=== PATIENT | female | born 1985 | race Hispanic/Latino ===

== ENCOUNTER 2017-09-14 19:38 | Emergency (ER) | payer SELFPAY ==
[2017-09-14] MEDS ORDERED: FENTANYL CITR 100 MCG/2 ML ONE (20:34)
[2017-09-14] MEDS ORDERED: NA CHLORIDE 0.9% 1,000 ML ONE (20:35)
[2017-09-14 20:57] LABS: Absolute Lymphocytes (CBC) 2.7 K/uL (0.7-4.9); Absolute Neutrophil 6.6 K/uL (1.8-8.0); Basophils % 0.5 % (0-1.3); Eosinophils % 1.9 % (0-4.4); Hematocrit 42.6 % (36.0-45.0); Lymphocytes % 25.4 % (15.3-44.8); MCH 30.3 pg (27.0-35.0); MCV 88.2 fL (80-100); MPV 7.3 fL (7.6-11.3); Monocytes % 9.1 % (3.3-12.3); RBC Red Blood Cell Count 4.83 M/uL (3.86-4.86)
[2017-09-14 21:04] LABS: Potassium 3.5 mEq/L (3.6-5.0)
[2017-09-14 21:05] LABS: Protime INR 1.03
[2017-09-14 21:10] LABS: Bilirubin Direct 0.1 mg/dL (0-0.2); Bilirubin Total 0.6 mg/dL (0.3-1.2); Protein, Total 7.2 g/dL (6.0-8.3)
[2017-09-14 21:14] LABS: Magnesium 1.7 mg/dL (1.8-2.5)
--- NOTE | 2017-09-14 21:25 | RAD REPORT ---
EXAM DESCRIPTION: Apple Venous Uni Ltd09/14/2017 9:17 pm CLINICAL HISTORY: left leg pain COMPARISON: None. FINDINGS: Left common femoral, superficial femoral, popliteal and posterior tibial veins are compre ssible and demonstrate augmentation. Doppler demonstrates good flow. IMPRESSION: No evidence of deep venous thrombosis involving the left lower extremity.
--- NOTE | 2017-09-14 21:43 | RAD REPORT ---
EXAM DESCRIPTION: Tessa Thakkar Left09/14/2017 9:36 pm CLINICAL HISTORY: Left leg pain status post injury FINDINGS: A mildly displaced oblique fracture involves the distal fibular diametaphysis. Avulsion fracture of the medial malleolus is seen. Small avulsion fracture of the posterior malleolus is suspected. No dislocation is seen
[2017-09-14] MEDS ORDERED: POTASSIUM 25 MEQ EFFERV TAB ONE (22:13)
[2017-09-14] MEDS ORDERED: MAGNESIUM OXIDE 400 MG TAB ONE (22:13)
[2017-09-14] MEDS ORDERED: KETOROLAC 30 MG/ML INJ ONE (22:36)
--- NOTE | 2017-09-14 22:42 | ER ---
Nurse's Notes [facility] Name: Kady Abernathy Age: 32 yrs Sex: Female : 1985 Arrival Date: 09/14/2017 Time: 19:40 Bed 16 Private MD: Diagnosis: Pain in left ankle and joints of left foot-s/p fracture Presentation: 09/14 20:03 Presenting complaint: Patient states: About an hour ago I had a near syncope, I got a la1 really intense pain right before I passed out and I feel like the pain was just too much. Pt alert, oriented x4, respirations even and unlabored. Previous injury to LLE with cast and dressing applied. Transition of care: patient was not received from another setting of care. Onset of symptoms was September 14, 2017. Initial Sepsis Screen: Does the patient meet any 2 criteria? No. Patient's initial sepsis screen is negative. Does the patient have a suspected source of infection? No. Patient's initial sepsis screen is negative. Care prior to arrival: None. 20:03 Method Of Arrival: Wheelchair la1 20:03 Acuity: STEVEN 3 la1 Historical: - Allergies: 20:04 No Known Allergies; la1 - PMHx: 20:04 None; la1 - Immunization history:: Adult Immunizations up to date. - Social history:: Smoking status: Patient/guardian denies using tobacco. Screenin:17 Abuse screen: Denies threats or abuse. Nutritional screening: No deficits noted. tl2 Tuberculosis screening: No symptoms or risk factors identified. Fall Risk Gait- Impaired (20 pts.). Assessment: 20:17 General: Appears in no apparent distress. uncomfortable, Behavior is cooperative, tl2 appropriate for age, drowsy. General: Pain in left leg has gotten worse,supposed to have surgery on Saturday. Pain was so bad today that it made pt have a near syncopal episode. Pt reports feeling more drowsy than normal. Pain: Complains of pain in left leg Pain does not radiate. Pain currently is 10 out of 10 on a pain scale. Neuro: Level of Consciousness is awake, alert, obeys commands, Oriented to person, place, time, situation. Cardiovascular: Denies chest pain. Respiratory: Airway is patent Respiratory effort is even, unlabored, Respiratory pattern is regular, symmetrical. GI: No signs and/or symptoms were reported involving the gastrointestinal system. : No signs and/or symptoms were reported regarding the genitourinary system. Derm: Skin is pink, warm \T\ dry. 21:17 Reassessment: Patient appears in no apparent distress at this time. No changes from tl2 previously documented assessment. Patient and/or family updated on plan of care and expected duration. Pain level reassessed. Patient is alert, oriented x 3, equal unlabored respirations, skin warm/dry/pink. 22:00 Reassessment: Patient appears in no apparent distress at this time. Patient and/or tl2 family updated on plan of care and expected duration. Pain level reassessed. Patient is alert, oriented x 3, equal unlabored respirations, skin warm/dry/pink. 23:08 Reassessment: Patient appears in no apparent distress at this time. Patient and/or tl2 family updated on plan of care and expected duration. Pain level reassessed. Patient is alert, oriented x 3, equal unlabored respirations, skin warm/dry/pink. Pt verbalized understanding of discharge instructions, need for follow up and splint care. Vital Signs: 20:04 BP 96 / 80; Pulse 80; Resp 16; Temp 98.6; Pulse Ox 100% on R/A; Weight 89.81 kg; Height la1 5 ft. 3 in. (160.02 cm); 20:17 BP 110 / 77; Pulse 88; Resp 16; Pulse Ox 100% on R/A; tl2 21:17 BP 102 / 73; Pulse 71; Resp 18; Pulse Ox 100% on R/A; tl2 21:54 BP 113 / 66; Pulse 72; Resp 18; Pulse Ox 99% on R/A; tl2 22:00 BP 104 / 64; Pulse 83; Resp 18; Pulse Ox 100% on R/A; Pain 7/10; tl2 22:22 BP 108 / 68; Pulse 78; Resp 18; Pulse Ox 98% on R/A; tl2 20:04 Body Mass Index 35.07 (89.81 kg, 160.02 cm) la1 ED Course: 19:40 Patient arrived in ED. es 20:04 Triage completed. la1 20:05 Arm band placed on right wrist. la1 20:12 Hugo Keen PA is PHCP. cp 20:12 Ya Perez MD is Attending Physician. cp 20:17 Ashleigh Olivarez, NENA is Primary Nurse. tl2 20:17 Patient has correct armband on for positive identification. Bed in low position. Call tl2 light in reach. Side rails up X2. Adult w/ patient. 20:35 Inserted saline lock: 20 gauge in left antecubital area, using aseptic technique. Blood tl2 collected. 20:49 EKG done, by ED staff, reviewed by Hugo MONTOYA. cc 20:53 Ultrasound completed. Patient tolerated well. ap2 21:18 US Extremity Venous Uni Ltd In Process Unspecified. EDMS 21:33 XRAY Tib Fib LEFT In Process Unspecified. EDMS 21:33 X-ray completed. Portable x-ray completed in exam room. Patient tolerated procedure ag1 well. 22:00 No provider procedures requiring assistance completed. tl2 22:30 Orthoglass splint: Posterior short lleg splint applied on left leg. stirrup splint tl2 applied on left leg. 22:39 Lucian Martínez MD is Referral Physician. cp 23:11 IV discontinued, intact, bleeding controlled, No redness/swelling at site. Pressure tl2 dressing applied. Administered Medications: 20:45 Drug: fentaNYL (PF) 25 mcg Route: IVP; Site: left antecubital; tl2 21:23 Follow up: Response: No adverse reaction; Pain is unchanged, physician notified tl2 20:45 Drug: NS 0.9% 1000 ml Route: IV; Rate: 1 bolus; Site: left antecubital; tl2 23:12 Follow up: IV Status: Completed infusion; IV Intake: 1000ml tl2 21:39 Drug: fentaNYL (PF) 25 mcg Route: IVP; Site: left antecubital; tl2 22:00 Follow up: Response: No adverse reaction; Pain is unchanged, physician notified tl2 22:31 Drug: Potassium Effervescent Tablet 25 mEq Route: PO; tl2 23:12 Follow up: Response: No adverse reaction tl2 22:31 Drug: Magnesium Oxide 400 mg Route: PO; tl2 23:12 Follow up: Response: No adverse reaction tl2 22:43 Drug: TORadol 30 mg Route: IVP; Site: left antecubital; tl2 23:13 Follow up: Response: No adverse reaction; Medication administered at discharge. tl2 Intake: 23:12 IV: 1000ml; Total: 1000ml. tl2 Outcome: 22:41 Discharge ordered by . cp 23:11 Discharged to home via wheelchair, with family. tl2 23:11 Condition: stable 23:11 Discharge instructions given to patient, family, Instructed on discharge instructions, follow up and referral plans. Demonstrated understanding of instructions, follow-up care, splint care. 23:13 Patient left the ED. tl2 Signatures: Dispatcher [employer] EDMelva Willis [place] cc Attema, Lee, RN RN la1 Joselyn Carrington ag1 Hugo Keen PA PA cp Knox, Taylor RN RN tl2 Corin Orozco ap2 Corrections: (The following items were deleted from the chart) 21:19 21:18 Ultrasound completed. Patient tolerated well. ap2 ap2 22:23 22:22 Pulse 78bpm; Resp 18bpm; Pulse Ox 98% RA; tl2 tl2 23:11 22:00 IV discontinued, intact, bleeding controlled, No redness/swelling at site. tl2 Pressure dressing applied, tl2
--- NOTE | 2017-09-14 22:42 | EDPHYS ---
Physician Documentation [facility] Name: Kady Abernathy Age: 32 yrs Sex: Female : 1985 Arrival Date: 09/14/2017 Time: 19:40 Bed 16 Private MD: ED Physician Ya Perez HPI: 09/14 20:48 This 32 yrs old Female presents to ER via Wheelchair with complaints of cp Medical Complaint. 20:48 The patient has experienced near-syncope, almost passed out. cp 20:48 Onset: The symptoms/episode began/occurred today. cp Historical: - Allergies: 20:04 No Known Allergies; la1 - PMHx: 20:04 None; la1 - Immunization history:: Adult Immunizations up to date. - Social history:: Smoking status: Patient/guardian denies using tobacco. ROS: 20:55 Constitutional: Negative for body aches, chills, fever, poor PO intake. cp 20:55 Eyes: Negative for injury, pain, redness, and discharge. cp 20:55 ENT: Negative for drainage from ear(s), ear pain, sore throat, difficulty swallowing, difficulty handling secretions. 20:55 Neck: Negative for pain with movement, pain at rest, stiffness. 20:55 Cardiovascular: Negative for chest pain, palpitations. 20:55 Respiratory: Negative for cough, shortness of breath, wheezing. 20:55 Abdomen/GI: Negative for abdominal pain, nausea, vomiting, and diarrhea, constipation, black/tarry stool, rectal bleeding. 20:55 Back: Negative for pain at rest, pain with movement, radiated pain. 20:55 : Negative for urinary symptoms. 20:55 Skin: Positive for ecchymosis, swelling, of the left ankle, Negative for cellulitis, rash. 20:55 Neuro: Positive for near syncope, Negative for altered mental status, headache, seizure activity, speech changes, syncope, weakness. 20:55 All other systems are negative. Exam: 20:40 ECG was reviewed by the Attending Physician. cp 21:00 Constitutional: The patient appears in no acute distress, alert, awake, non-toxic, well cp developed, well nourished, uncomfortable. 21:00 Head/Face: Normocephalic, atraumatic. Eyes: Pupils equal round and reactive to light, cp extra-ocular motions intact. Lids and lashes normal. Conjunctiva and sclera are non-icteric and not injected. Cornea within normal limits. Periorbital areas with no swelling, redness, or edema. ENT: Nares patent. No nasal discharge, no septal abnormalities noted. Tympanic membranes are normal and external auditory canals are clear. Oropharynx with no redness, swelling, or masses, exudates, or evidence of obstruction, uvula midline. Mucous membranes moist. Neck: Trachea midline, no thyromegaly or masses palpated, and no cervical lymphadenopathy. Supple, full range of motion without nuchal rigidity, or vertebral point tenderness. No Meningismus. Chest/axilla: Normal chest wall appearance and motion. Nontender with no deformity. No lesions are appreciated. 21:00 Cardiovascular: Rate: normal, Rhythm: regular, Pulses: Pulses are 2+ in left dorsalis pedis artery. Heart sounds: murmur, not appreciated, JVD: is not appreciated. 21:00 Respiratory: the patient does not display signs of respiratory distress, Respirations: normal, no use of accessory muscles, no retractions, no splinting, no tachypnea, labored breathing, is not present, Breath sounds: are clear throughout, no decreased breath sounds, no stridor, no wheezing. 21:00 Abdomen/GI: Inspection: abdomen appears normal, Bowel sounds: active, all quadrants, Palpation: abdomen is soft and non-tender, in all quadrants, rebound tenderness, is not appreciated, involuntary guarding, is not appreciated. 21:00 Back: pain, is absent, ROM is normal. Vital Signs: 20:04 BP 96 / 80; Pulse 80; Resp 16; Temp 98.6; Pulse Ox 100% on R/A; Weight 89.81 kg; Height la1 5 ft. 3 in. (160.02 cm); 20:17 BP 110 / 77; Pulse 88; Resp 16; Pulse Ox 100% on R/A; tl2 21:17 BP 102 / 73; Pulse 71; Resp 18; Pulse Ox 100% on R/A; tl2 21:54 BP 113 / 66; Pulse 72; Resp 18; Pulse Ox 99% on R/A; tl2 22:00 BP 104 / 64; Pulse 83; Resp 18; Pulse Ox 100% on R/A; Pain 7/10; tl2 22:22 BP 108 / 68; Pulse 78; Resp 18; Pulse Ox 98% on R/A; tl2 20:04 Body Mass Index 35.07 (89.81 kg, 160.02 cm) la1 MDM: 20:12 Patient medically screened. cp 22:40 Data reviewed: vital signs, nurses notes, lab test result(s), EKG, radiologic studies, cp plain films, ultrasound, and as a result, I will discharge patient. 22:40 Test interpretation: by ED physician or midlevel provider: ECG. Counseling: I had a cp detailed discussion with the patient and/or guardian regarding: the historical points, exam findings, and any diagnostic results supporting the discharge/admit diagnosis, lab results, radiology results, the need for outpatient follow up, a orthopedic surgeon, to return to the emergency department if symptoms worsen or persist or if there are any questions or concerns that arise at home. 09/14 20:23 Order name: Basic Metabolic Panel; Complete Time: 21:18 cp 09/14 21:18 Interpretation: Normal except: K 3.5; GLUC 127; GFR 87. 09/14 20:23 Order name: CBC with Diff; Complete Time: 21:18 cp 09/14 22:04 Interpretation: WBC 10.5; MPV 7.3; Reviewed. 09/14 20:23 Order name: LFT's; Complete Time: 21:18 cp 09/14 20:23 Order name: Magnesium; Complete Time: 21:18 cp 09/14 21:18 Interpretation: Abnormal: MG 1.7. cp 09/14 20:23 Order name: PT-INR; Complete Time: 21:18 cp 09/14 20:23 Order name: Ptt, Activated; Complete Time: 21:18 cp 09/14 20:23 Order name: US Extremity Venous Uni Ltd; Complete Time: 22:02 cp 09/14 22:02 Interpretation: Report reviewed. 09/14 20:23 Order name: XRAY Tib Fib LEFT; Complete Time: 22:02 cp 09/14 22:03 Interpretation: Report reviewed. 09/14 20:23 Order name: EKG; Complete Time: 20:24 cp 09/14 20:23 Order name: EKG - Nurse/Tech; Complete Time: 20:33 cp 09/14 20:23 Order name: Cardiac monitoring; Complete Time: 20:45 cp 09/14 20:23 Order name: IV Saline Lock; Complete Time: 20:33 cp 09/14 20:23 Order name: Labs collected and sent; Complete Time: 20:33 cp 09/14 20:23 Order name: O2 Per Protocol; Complete Time: 20:45 cp 09/14 20:23 Order name: O2 Sat Monitoring; Complete Time: 20:45 cp 09/14 22:19 Order name: Splint - Long Leg: Posterior w/ Stirrup; Complete Time: 22:20 cp EC:40 Rate is 73 beats/min. Rhythm is regular. NE interval is normal. QRS interval is normal. cp QT interval is normal. No ST changes noted. Interpreted by me. Reviewed by me. Administered Medications: 20:45 Drug: fentaNYL (PF) 25 mcg Route: IVP; Site: left antecubital; tl2 21:23 Follow up: Response: No adverse reaction; Pain is unchanged, physician notified tl2 20:45 Drug: NS 0.9% 1000 ml Route: IV; Rate: 1 bolus; Site: left antecubital; tl2 23:12 Follow up: IV Status: Completed infusion; IV Intake: 1000ml tl2 21:39 Drug: fentaNYL (PF) 25 mcg Route: IVP; Site: left antecubital; tl2 22:00 Follow up: Response: No adverse reaction; Pain is unchanged, physician notified tl2 22:31 Drug: Potassium Effervescent Tablet 25 mEq Route: PO; tl2 23:12 Follow up: Response: No adverse reaction tl2 22:31 Drug: Magnesium Oxide 400 mg Route: PO; tl2 23:12 Follow up: Response: No adverse reaction tl2 22:43 Drug: TORadol 30 mg Route: IVP; Site: left antecubital; tl2 23:13 Follow up: Response: No adverse reaction; Medication administered at discharge. tl2 Disposition: 09/15 01:21 Co-signature as Attending Physician, Ya Perez MD I agree with the assessment ma2 and plan of care. Disposition: 09/14/17 22:41 Discharged to Home. Impression: Pain in left ankle and joints of left foot - s/p fracture. - Condition is Stable. - Discharge Instructions: Ankle Fracture, Ankle Pain. - Medication Reconciliation Form, Thank You Letter, Antibiotic Education, Prescription Opioid Use form. - Follow up: Lucian Martínez MD; When: 09/17/2017; Reason: as scheduled for surgery. - Problem is an ongoing problem. - Symptoms have improved. Signatures: Dispatcher [employer] Christofer Vega RN RN la1 Hugo Keen PA PA cp Knox, Taylor, RN RN tl2 Ya Perez MD MD ma2 Corrections: (The following items were deleted from the chart) 09/14 22:04 21:18 Reviewed. cp cp
--- NOTE | 2017-09-15 06:13 | EKG ---
Test Date: 2017-09-14 Test Time: 20:35:39 [employer] Worker: SHELLIE MEASUREMENT RESULTS: Intervals: Rate: 73 NH: 130 QRSD: 80 QT: 390 QTc: 429 Ennice: P: 46 NH: 130 QRS: -13 T: 16 INTERPRETIVE STATEMENTS: Normal sinus rhythm Normal ECG Compared to ECG 09/12/2017 13:14:51 no significant change from previous ECG Electronically Signed On 09-15-17 06:12:30 CDT by Jt Pisano
== END 2017-09-14 23:13 | disposition home or self-care (01) ==
LOC: ER 19:38
PROC: 2W3MX1Z Immobilization of Left Lower Extremity using Splint (ICD-10-PCS; principal; 2017-09-14)
DX: S82.892A Other fracture of left lower leg, initial encounter for closed fracture (principal); R55 Syncope and collapse; X58.XXXA Exposure to other specified factors, initial encounter; Y93.9 Activity, unspecified; Y92.9 Unspecified place or not applicable
CPT/HCPCS: 36415; 80048; 80076; 83735; 85025; 85610; 85730; 93005; 93971; 96361; 96374; 96375; 99284; J3010; J7030

== ENCOUNTER 2017-09-17 12:00 | Day surgery (SDC) | payer SELFPAY ==
--- NOTE | 2017-09-12 13:37 | RAD REPORT ---
EXAM DESCRIPTION: RAD - Chest Pa And Lat (2 Views) - 09/12/2017 1:30 pm CLINICAL HISTORY: Chest pain. COMPARISON: None. FINDINGS: The lungs are clear. The heart is normal in size. No displaced fractures. IMPRESSION: No acute or concerning finding suspected.
[2017-09-12 13:59] LABS: Absolute Monocytes 0.6 K/uL (0.1-1.3); Basophils % 0.5 % (0-1.3); Eosinophils % 2.3 % (0-4.4); Hematocrit 42.9 % (36.0-45.0); Lymphocytes % 38.7 % (15.3-44.8); MCH 30.4 pg (27.0-35.0); MCV 88.6 fL (80-100); MPV 7.7 fL (7.6-11.3); Monocytes % 7.1 % (3.3-12.3); RBC Red Blood Cell Count 4.84 M/uL (3.86-4.86)
[2017-09-12 14:00] LABS: Urine Appearance CLEAR; Urine Bilirubin NEGATIVE (NEG); Urine Blood TRACE (NEG); Urine Color YELLOW; Urine Glucose NEGATIVE (NEG); Urine Protein NEGATIVE (NEG); Urine Specific Gravity 1.015 (1.005-1.030); Urine Urobilinogen 0.2 mg/dL (0.2-1.0); Urine pH 6.5 (5.0-7.0)
[2017-09-12 14:29] LABS: ALT/SGPT 16 IU/L (10-60); AST/SGOT 21 IU/L (10-42); Albumin 3.9 g/dL (3.2-5.5); Alkaline Phosphatase 68 IU/L (42-121); BUN Blood Urea Nitrogen 6 mg/dL (6-20); Bicarbonate 27 mEq/L (21-31); Bilirubin Total 0.5 mg/dL (0.3-1.2); Glucose Level 85 mg/dL (65-120); Potassium 4.1 mEq/L (3.6-5.0); Protein, Total 6.9 g/dL (6.0-8.3); Sodium Level 136 mEq/L (135-145)
[2017-09-12 14:42] LABS: Urine Microscopic Reflex ORDER UMIC
[2017-09-12 14:49] LABS: Urine Bacteria <20 /HPF (<20); Urine Culture Reflex Order REFLEXED; Urine RBC <5 /HPF (NONE SEEN)
--- NOTE | 2017-09-12 17:00 | EKG ---
Test Date: 2017-09-12 Test Time: 13:14:51 [employer] Associate: IVAN MEASUREMENT RESULTS: Intervals: Rate: 69 RI: 128 QRSD: 80 QT: 410 QTc: 439 [place]: P: 50 RI: 128 QRS: -24 T: 15 INTERPRETIVE STATEMENTS: Normal sinus rhythm Possible Left atrial enlargement Borderline ECG No previous ECG available for comparison Electronically Signed On 09-12-17 17:00:20 CDT by Jt Pisano
[2017-09-13 08:24] LABS: A1c Component 0.57 mg/dL; Hemoglobin A1c 5.4 % (4-6.0)
[2017-09-17] MEDS ORDERED: VANCOMYCIN/NS 1 gm 1 GM/250 ML BAG ONE (12:17)
[2017-09-17] MEDS ORDERED: Ringers Lactate 1,000 ML IV ONE ×2 (12:17→15:31)
[2017-09-17 12:19] LABS: Specific Gravity 1.015 (1.005-1.030)
[2017-09-17] MEDS ORDERED: FENTANYL CITR 100 MCG/2 ML ONE ×2 (12:32→14:20)
[2017-09-17] MEDS ORDERED: PROPOFOL 200 MG/20 ML VIAL IV ONE (12:32)
[2017-09-17] MEDS ORDERED: MIDAZOLAM HCL 2 MG/2 ML INJ ONE (12:32)
[2017-09-17] MEDS ORDERED: ONDANSETRON 4 MG/2 ML VIAL ONE (12:32)
[2017-09-17] MEDS ORDERED: LIDOCAINE 2% MPF 5 ML VIAL ONE (12:32)
[2017-09-17] MEDS ORDERED: DEXAMETHASONE 10 MG/ML VIAL ONE (12:32)
[2017-09-17] MEDS ORDERED: BUPIVACA 0.25%/EPI 0.0005% MDV 50 ML VIAL ONE (12:45)
[2017-09-17] MEDS ORDERED: BUPIVACAINE 0.25% PF 10 ML VIAL ONE (12:46)
[2017-09-17 13:00] LABS: Urine Appearance CLEAR; Urine Bilirubin NEGATIVE (NEG); Urine Blood TRACE (NEG); Urine Color YELLOW; Urine Glucose NEGATIVE (NEG); Urine Protein NEGATIVE (NEG); Urine Specific Gravity 1.015 (1.005-1.030); Urine Urobilinogen 0.2 mg/dL (0.2-1.0); Urine pH 7.5 (5.0-7.0)
[2017-09-17 13:02] LABS: Urine Microscopic Reflex ORDER UMIC
[2017-09-17 13:15] LABS: Urine Bacteria <20 /HPF (<20); Urine Culture Reflex Order REFLEXED; Urine RBC <5 /HPF (NONE SEEN)
[2017-09-17] MEDS ORDERED: KETOROLAC 30 MG/ML INJ ONE (13:25)
--- NOTE | 2017-09-17 15:12 | RAD REPORT ---
EXAM DESCRIPTION: RAD - Ankle Left 2 View - 09/17/2017 3:04 pm CLINICAL HISTORY: Left ankle fracture. COMPARISON: None. FINDINGS: Fluoroscopic imaging is submitted of the left ankle as part of ORIF procedure. Details of the procedure not available.
[2017-09-17] MEDS: MEPERIDINE HCL 25 MG/0.5 ML ONE ×2 (15:35→15:40)
--- NOTE | 2017-09-17 15:39 | P.BOP ---
Preoperative diagnosis: Left ankle bimalleolar fracture Postoperative diagnosis: Same Primary procedure: ORIF left ankle bimalleolar fracture Tangible Personal Property Appraiser: Lucian Martínez Estimated blood loss: 20 mL Specimen: none Findings: bimalleolar fracture Anesthesia: General Complications: None Implants: 6-hole1/3tubular plate,5cortical screws,1 CannulatedCancellousScrewMedMall Fluids & blood products: inj. 20 mL 0.25%Marcaine plain Transferred to: Recovery Room Condition: Good
[2017-09-17] MEDS ORDERED: MEPERIDINE HCL 25 MG/0.5 ML ONE (15:52)
[2017-09-17] MEDS ORDERED: HYDROCODONE/APAP 10/325 TAB ONE (17:04)
--- NOTE | 2017-09-19 05:35 | OP ---
Date of Procedure: 09/17/2017 Surgeon: Lucian Martínez MD Scissors Grinder: Lucian Martínez M.D. Preoperative Diagnosis: Left ankle bimalleolar fracture. Postoperative Diagnosis: Left ankle bimalleolar fracture. Primary Procedure: Open reduction and internal fixation, left ankle bimalleolar fracture. Indications: This 32-year-old female suffered an impact while sliding down a slide at the [employer] layground causing her foot to be twisted behind her. She had immediate pain and swelling and went to the emergency department where bimalleolar fracture was seen on x-ray and the patient was placed in a short-leg splint. The injury occurred on 09/06/2017, and she was taken to surgery 11 days later. She did have her splint opened at the office to make sure there were no fracture blisters. The patie nt is aware of risks and benefits having discussed them at length with all questions answered. She h as elected to proceed with bimalleolar ORIF. Technique: The patient was taken to the operating room. All pertinent facts were discussed and the decision to proceed with the operation was affirmative. The patient was given a general anesthetic. A bolster was placed under the left hip to allow access to the lateral ankle. The tourniquet was ap plied to the proximal thigh. The limb was prepped and draped in usual manner. Exsanguination was ca rried out with an Esmarch bandage. The tourniquet was raised to 250 mmHg. The incision was made ove r the distal 8 cm of the lateral malleolus. Incision was carried sharply down through skin and subcu taneous tissue to bone. The fracture site was identified and reduced with a claw clamp. The 6 hole 1/3 tubular plate was bent to fit and 2 screws were placed distal to the fracture line with 3 screws placed proximal to the fracture line with each screw drilled and measured with a depth gauge and veri fied as appropriate in length with the C-arm. Once the lateral malleolus was secured, attention was turned to the medial malleolus. A 3 cm longitudinal incision over the tip of the medial malleolus re vealed the fracture site, which was reduced and held with a towel clip clamp, then a guide pin was dr illed across the fracture site into the distal tibia to catch the posterior cortex. This made for a stable guidewire that would not move around while reaming and insertion of screw was performed. The fragment of the medial malleolus was quite small and too small to accept 2 screws for fixation, so th e reaming drill was used over the guide pin and then a 40 mm cancellous smooth shaft screw was rotate d in over the guidewire to compress the medial malleolar fragment against its fracture site. The fra gment was then quite stable to palpation without movement. Irrigation was used for both the medial a nd lateral incisions. Fascial layers were closed with 2-0 Vicryl. Subcutaneous layers were closed w ith 2-0 Vicryl. Skin jamari were used for skin closure. Then, the posterior splint and coaptation splint that were removed from the patient was reapplied after Xeroform gauze, 4 x 4 flats, and soft r oll were applied for bandages. Before closure of the bandage, the incisions had been injected with 2 0 mL of 0.25% Marcaine plain. The implants included the 6 hole 1/3 tubular plate, 5 cortical screws, and 1 cannulated cancellous screw for the medial malleolar fixation. Tourniquet time was 86 minutes with the tourniquet elevated to 250 mmHg. The patient was taken to the recovery room, having tolera bonnie the procedure well. She was prescribed [place] 10/325 one tablet p.o. q.4 hours p.r.n. pain and di scharged when released by Anesthesia for followup at my office in 7 to 10 days. The patient is to co ntinue nonweightbearing ambulation using crutches for an additional 4 weeks. AASHISH/ISABEL Voice ID: [id number] Report ID: [id number]
== END 2017-09-17 18:22 | disposition home or self-care (01) ==
LOC: OR 12:00
PROVIDERS: ATTEND Orthopaedic Surgery
PROC: 0QSK04Z Reposition Left Fibula with Internal Fixation Device, Open Approach (ICD-10-PCS; 2017-09-17)
PROC: 0QSH04Z Reposition Left Tibia with Internal Fixation Device, Open Approach (ICD-10-PCS; principal; 2017-09-17 13:00)
DX: S82.842A Displaced bimalleolar fracture of left lower leg, initial encounter for closed fracture (principal)
CPT/HCPCS: 36415; 71046; 80053; 81003; 81015; 81025; 83036; 85025; 87077; 87086; 87088; 87186; 93005; J1100; J2175; J2250; J2405; J3010; J3370

== ENCOUNTER 2017-09-24 16:24 | Emergency (ER) | payer SELFPAY ==
[2017-09-24] MEDS ORDERED: NA CHLORIDE 0.9% 1,000 ML ONE (17:48)
[2017-09-24] MEDS ORDERED: METHYLPREDNISOLONE 125 MG INJ ONE (17:48)
[2017-09-24] MEDS ORDERED: FAMOTIDINE 20 MG/2 ML VIAL IV ONE (17:49)
[2017-09-24] MEDS ORDERED: ONDANSETRON 4 MG/2 ML VIAL ONE (17:50)
[2017-09-24] MEDS ORDERED: DIPHENHYDRAMINE 50 MG/ML VIAL ONE (17:50)
[2017-09-24 17:52] LABS: Urine Blood 1+ (NEG); Urine Glucose NEGATIVE (NEG); Urine Protein NEGATIVE (NEG); Urine Specific Gravity <1.005 (1.005-1.030)
[2017-09-24 17:57] LABS: Urine Bacteria <20 /HPF (<20); Urine Culture Reflex Order NOT NEEDED
[2017-09-24 18:06] LABS: BUN Blood Urea Nitrogen 8 mg/dL (6-20); Bicarbonate 25 mEq/L (21-31); Glucose Level 108 mg/dL (65-120); Potassium 3.5 mEq/L (3.6-5.0); Sodium Level 130 mEq/L (135-145)
[2017-09-24 18:31] LABS: Absolute Lymphocytes (CBC) 0.3 K/uL (0.7-4.9); Absolute Monocytes 0.3 K/uL (0.1-1.3); Absolute Neutrophil 8.1 K/uL (1.8-8.0); Basophils % 0.2 % (0-1.3); Eosinophils % 3.3 % (0-4.4); Hematocrit 40.8 % (36.0-45.0); MCV 87.8 fL (80-100); MPV 7.9 fL (7.6-11.3); Monocytes % 3.4 % (3.3-12.3); RBC Red Blood Cell Count 4.65 M/uL (3.86-4.86)
[2017-09-24 18:34] LABS: Blood Morphology Comment NOT SEEN (NOT SEEN); Platelet Estimate ADEQ; Urine White Blood Cell Casts OK
--- NOTE | 2017-09-24 19:36 | RAD REPORT ---
EXAM DESCRIPTION: CTAbdomen Pelvis W Contrast - 09/24/2017 7:28 pm CLINICAL HISTORY: Abdominal pain. COMPARISON: None. TECHNIQUE: Biphasic CT imaging of the abdomen and pelvis was performed with 100 ml non-ionic IV cont rast. All CT scans are performed using dose optimization technique as appropriate and may include automated exposure control or mA/KV adjustment according to patient size. FINDINGS: Mild linear atelectasis is present in the posterior left lung base. The liver, spleen, pancreas, adrenal glands and right kidney are within normal limits. 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 No bowel obstruction, free air, intra-abdominal free fluid or abscess. Mild pelvic free fluid, likely physiologic. The appendix is normal. A few mildly prominent bilateral inguinal lymph nodes seen. Sm all fat containing umbilical hernia. No suspicious bony findings. 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 Mild bilateral inguinal lymphadenopathy, presumably reactive.
--- NOTE | 2017-09-24 19:57 | ER ---
Nurse's Notes [facility] Name: Kady Abernathy Age: 32 yrs Sex: Female : 1985 Arrival Date: 09/24/2017 Time: 16:26 Bed 28 Private MD: None, None Diagnosis: Allergy status to other antibiotic agents status Presentation: 09/24 16:55 Presenting complaint: Patient states: taking rifampin, Bactrim, and hydrocodone, i had ch ankel surgery and dx with a uti/sour stomach. I have been running a fever all day, t max 102.3, and now i am covered in red itchy splotches. I dont feel well still, I ache all over. Transition of care: patient was not received from another setting of care. Onset: The symptoms/episode began/occurred gradually. Anaphylaxis evaluation, no signs or symptoms of anaphylaxis were noted. Onset of symptoms was September 24, 2017. Initial Sepsis Screen: Does the patient meet any 2 criteria? No. Patient's initial sepsis screen is negative. Does the patient have a suspected source of infection? No. Patient's initial sepsis screen is negative. Care prior to arrival: None. 16:55 Method Of Arrival: Ambulatory 16:55 Acuity: STEVEN 3 ch Triage Assessment: 16:57 General: Appears in no apparent distress. uncomfortable, Behavior is cooperative, ch appropriate for age. Historical: - Allergies: 16:57 No Known Allergies; ch - Home Meds: 16:57 Rifampin Oral [Active]; Bactrim DS Oral [Active]; [place] Oral [Active]; Ibuprofen Oral ch [Active]; tylenol [Active]; - PMHx: 16:57 None; ch - PSHx: 16:57 L ankle; ch - Immunization history:: Adult Immunizations unknown. - Social history:: Smoking status: Patient/guardian denies using tobacco. Screenin:00 Abuse screen: Denies threats or abuse. Denies injuries from another. Nutritional kr2 screening: No deficits noted. Tuberculosis screening: No symptoms or risk factors identified. Fall Risk IV access (20 points). Gait- Impaired (20 pts.). Assessment: 17:00 General: Appears in no apparent distress. uncomfortable, well groomed, well developed, kr2 well nourished, Behavior is calm, cooperative, appropriate for age. Pain: Complains of pain in left leg Pain does not radiate. Pain currently is 5 out of 10 on a pain scale. Quality of pain is described as aching, Is continuous. Neuro: Level of Consciousness is awake, alert, obeys commands, Oriented to person, place, time, situation, Appropriate for age. Cardiovascular: Capillary refill < 3 seconds in bilateral fingers Patient's skin is warm and dry. Respiratory: Airway is patent Respiratory effort is even, unlabored, Respiratory pattern is regular, symmetrical, Breath sounds are clear bilaterally. GI: Abdomen is flat, non-distended. : Urine is clear. EENT: Oral mucosa is dry. Derm: Skin is intact, is healthy with good turgor, Skin is pink, warm \T\ dry. Rash noted that is itchy, red, raised, on face and arms. Musculoskeletal: Circulation, motion, and sensation intact. splint in place to left lower leg due to recent ankle surgery. Toes pink, sensation intact. 18:00 Reassessment: Patient appears in no apparent distress at this time. Patient and/or kr2 family updated on plan of care and expected duration. Pain level reassessed. Patient is alert, oriented x 3, equal unlabored respirations, skin warm/dry/pink. 19:00 Reassessment: Patient appears in no apparent distress at this time. Patient and/or kr2 family updated on plan of care and expected duration. Pain level reassessed. Patient is alert, oriented x 3, equal unlabored respirations, skin warm/dry/pink. Patient states feeling better. 20:15 Reassessment: Patient appears in no apparent distress at this time. Patient and/or kr2 family updated on plan of care and expected duration. Pain level reassessed. Patient is alert, oriented x 3, equal unlabored respirations, skin warm/dry/pink. States itching has started to return, provider notified. Orders for PO Benadryl received, see MAR Patient states feeling better. Vital Signs: 16:57 Weight 89.81 kg; Height 5 ft. 3 in. (160.02 cm); ch 17:00 BP 110 / 66; Pulse 102; Resp 18; Temp 99.2; Pulse Ox 100% on R/A; kr2 18:43 BP 110 / 64; Pulse 101; Resp 16; Pulse Ox 100% on R/A; kr2 20:24 BP 108 / 70; Pulse 99; Resp 15; Pulse Ox 100% on R/A; kr2 16:57 Body Mass Index 35.07 (89.81 kg, 160.02 cm) ED Course: 16:26 Patient arrived in ED. mr 16:26 None, None is Private Physician. mr 16:51 Marlen Albert FNP-C [facility]. kb 16:51 Ya Perez MD is Attending Physician. kb 16:56 Triage completed. 16:57 Arm band placed on left wrist. Patient placed in an exam room, on a stretcher. 17:00 Patient has correct armband on for positive identification. Bed in low position. Call kr2 light in reach. Side rails up X2. Adult w/ patient. Pulse ox on. NIBP on. Door closed. Lights dimmed. Warm blanket given. Head of bed elevated. 17:10 Rosemarie Staples, NENA is Primary Nurse. kr2 17:20 Inserted saline lock: 22 gauge in right antecubital area, using aseptic technique. kr2 Blood collected. 19:[address] via stretcher. vm2 19:28 CT Abd/Pelvis - W/Contrast In Process Unspecified. EDMS 20:23 No provider procedures requiring assistance completed. IV discontinued, intact, kr2 bleeding controlled, No redness/swelling at site. Pressure dressing applied. Administered Medications: 18:00 Drug: NS 0.9% 1000 ml Route: IV; Rate: 1000 ml; Site: right antecubital; kr2 19:30 Follow up: Response: No adverse reaction; IV Status: Completed infusion kr2 18:00 Drug: Zofran 4 mg Route: IVP; Site: right antecubital; kr2 20:22 Follow up: Response: No adverse reaction kr2 18:00 Drug: Pepcid 20 mg Route: IVP; Site: right antecubital; kr2 20:21 Follow up: Response: No adverse reaction kr2 18:00 Drug: Benadryl 12.5 mg Route: IVP; Site: right antecubital; kr2 20:21 Follow up: Response: No adverse reaction kr2 18:00 Drug: SOLU-Medrol 125 mg Route: IVP; Site: right antecubital; kr2 20:21 Follow up: Response: No adverse reaction kr2 20:21 Drug: Benadryl 50 mg Route: PO; kr2 20:22 Follow up: Response: Medication administered at discharge. kr2 Outcome: 19:56 Discharge ordered by . bailey 20:24 Discharged to home via wheelchair, with family. kr2 20:24 Condition: good 20:24 Discharge instructions given to patient, family, Instructed on discharge instructions, follow up and referral plans. Demonstrated understanding of instructions, follow-up care. 20:25 Patient left the ED. kr2 Addendum: 09/29/2017 09:15 Addendum: Culture Results: Positive urine culture. Phone call Attempt #1 attempted to s s call patient, no answer and no VM has been set up. Signatures: Dispatcher [employer] EDMS Marlen Albert, KITCHEN MANAGER-C KITCHEN MANAGER-CkTanya Arechiga, RN RN Anabel Hart Shelby, RN NENA Wanda Almaraz [facility] Rosemarie Staples RN RN kr2
--- NOTE | 2017-09-24 19:57 | EDPHYS ---
Physician Documentation [facility] Name: Kady Abernathy Age: 32 yrs Sex: Female : 1985 Arrival Date: 09/24/2017 Time: 16:26 Bed 28 Private MD: None, None ED Physician Ya Perez HPI: 09/24 18:00 This 32 yrs old Female presents to ER via Ambulatory with complaints of kb Allergic Reaction. 18:00 The patient presents with itching, redness of skin. Onset: The symptoms/episode kb began/occurred today, at 13:30. Associated signs and symptoms: Pertinent positives: fever, rash. Possible causes: antibiotics, rifampin. At home the patient or guardian has treated the symptoms with nothing. Severity of symptoms: At their worst the symptoms were moderate in the emergency department the symptoms are unchanged. The patient has not experienced similar symptoms in the past. The patient has been recently seen by a physician:. Pt states she has been running fever since Saturday. Had surgery last week by Dr Martínez so she went to him yesterday and he evaluated her leg and surgical site. No infectious process noted to leg/surgical site so pt was sent to Dr Younger for fever. UTI was diagnosed and pt was given Rifampin. States she took all prescribed medication last night. Today at 1330 pt started having redness to skin and itching, she thinks it is a reaction from the medication. Historical: - Allergies: 16:57 No Known Allergies; ch - Home Meds: 16:57 Rifampin Oral [Active]; Bactrim DS Oral [Active]; [place] Oral [Active]; Ibuprofen Oral ch [Active]; tylenol [Active]; - PMHx: 16:57 None; ch - PSHx: 16:57 L ankle; ch - Immunization history:: Adult Immunizations unknown. - Social history:: Smoking status: Patient/guardian denies using tobacco. ROS: 18:04 ENT: Negative for injury, pain, and discharge, Neck: Negative for injury, pain, and kb swelling, Cardiovascular: Negative for chest pain, palpitations, and edema, Respiratory: Negative for shortness of breath, cough, wheezing, and pleuritic chest pain, Abdomen/GI: Negative for abdominal pain, nausea, vomiting, diarrhea, and constipation, Back: Negative for injury and pain, : Negative for injury, bleeding, discharge, and swelling, MS/Extremity: Negative for injury and deformity, Neuro: Negative for headache, weakness, numbness, tingling, and seizure. 18:04 Constitutional: Positive for fever, Negative for body aches, chills, fatigue, malaise, poor PO intake, weight loss. 18:04 Skin: Positive for erythema, diffusely. Exam: 18:03 Constitutional: This is a well developed, well nourished patient who is awake, alert, kb and in no acute distress. Head/Face: Normocephalic, atraumatic. ENT: Nares patent. No nasal discharge, no septal abnormalities noted. Tympanic membranes are normal and external auditory canals are clear. Oropharynx with no redness, swelling, or masses, exudates, or evidence of obstruction, uvula midline. Mucous membranes moist. Neck: Trachea midline, no thyromegaly or masses palpated, and no cervical lymphadenopathy. Supple, full range of motion without nuchal rigidity, or vertebral point tenderness. No Meningismus. Chest/axilla: Normal chest wall appearance and motion. Nontender with no deformity. No lesions are appreciated. Cardiovascular: Regular rate and rhythm with a normal S1 and S2. No gallops, murmurs, or rubs. Normal PMI, no JVD. No pulse deficits. Respiratory: Lungs have equal breath sounds bilaterally, clear to auscultation and percussion. No rales, rhonchi or wheezes noted. No increased work of breathing, no retractions or nasal flaring. Abdomen/GI: Soft, non-tender, with normal bowel sounds. No distension or tympany. No guarding or rebound. No evidence of tenderness throughout. Skin: Warm, dry with normal turgor. Normal color with no rashes, no lesions, and no evidence of cellulitis. Neuro: Awake and alert, GCS 15, oriented to person, place, time, and situation. Cranial nerves II-XII grossly intact. Motor strength 5/5 in all extremities. Sensory grossly intact. Cerebellar exam normal. Normal gait. 18:03 Musculoskeletal/extremity: Extremities: grossly normal except: noted in the left leg: splint in place,. Vital Signs: 16:57 Weight 89.81 kg; Height 5 ft. 3 in. (160.02 cm); ch 17:00 BP 110 / 66; Pulse 102; Resp 18; Temp 99.2; Pulse Ox 100% on R/A; kr2 18:43 BP 110 / 64; Pulse 101; Resp 16; Pulse Ox 100% on R/A; kr2 20:24 BP 108 / 70; Pulse 99; Resp 15; Pulse Ox 100% on R/A; kr2 16:57 Body Mass Index 35.07 (89.81 kg, 160.02 cm) MDM: 16:55 Patient medically screened. kb 17:59 Data reviewed: vital signs, nurses notes. Data interpreted: Pulse oximetry: on room air kb is 100 %. Interpretation: normal. 19:02 ED course: Redness and itching has resolved. Pt asked again about abd pain and she kb reports some lower abd pain and constipation. States she has been on hydrocodone and it has been causing constipation. . 19:54 Counseling: I had a detailed discussion with the patient and/or guardian regarding: the kb historical points, exam findings, and any diagnostic results supporting the discharge/admit diagnosis, lab results, radiology results, the need for outpatient follow up, a family practitioner, a orthopedic surgeon, to return to the emergency department if symptoms worsen or persist or if there are any questions or concerns that arise at home. 19:54 ED course: Surgical sites evaluated. No signs of infection noted. No redness, swelling, kb drainage, warmth. ED course: Pt educated to follow up with Dr Martínez and Dr Younger. Will stop rifampin since that was newest medication started and then had the reaction. . 09/24 17:07 Order name: Urine Culture 09/24 17:07 Order name: Urine Microscopic Only; Complete Time: 17:59 kb 09/24 17:07 Order name: CBC with Diff; Complete Time: 18:34 kb 09/24 17:07 Order name: Basic Metabolic Panel; Complete Time: 18:16 kb 09/24 17:51 Order name: Urine Dipstick--Ancillary (enter results); Complete Time: 17:53 ag 09/24 17:51 Order name: Urine --Ancillary (enter results); Complete Time: 17:53 ag 09/24 18:04 Order name: CBC Smear Scan; Complete Time: 18:34 EDMS 09/24 19:02 Order name: CT Abd/Pelvis - W/Contrast; Complete Time: 19:40 kb 09/24 17:07 Order name: Urine Test (obtain specimen); Complete Time: 17:52 kb 09/24 17:07 Order name: Urine Dipstick-Ancillary (obtain specimen); Complete Time: 17:52 kb 09/24 18:36 Order name: Vital Signs; Complete Time: 18:38 kb Administered Medications: 18:00 Drug: NS 0.9% 1000 ml Route: IV; Rate: 1000 ml; Site: right antecubital; kr2 19:30 Follow up: Response: No adverse reaction; IV Status: Completed infusion kr2 18:00 Drug: Zofran 4 mg Route: IVP; Site: right antecubital; kr2 20:22 Follow up: Response: No adverse reaction kr2 18:00 Drug: Pepcid 20 mg Route: IVP; Site: right antecubital; kr2 20:21 Follow up: Response: No adverse reaction kr2 18:00 Drug: Benadryl 12.5 mg Route: IVP; Site: right antecubital; kr2 20:21 Follow up: Response: No adverse reaction kr2 18:00 Drug: SOLU-Medrol 125 mg Route: IVP; Site: right antecubital; kr2 20:21 Follow up: Response: No adverse reaction kr2 20:21 Drug: Benadryl 50 mg Route: PO; kr2 20:22 Follow up: Response: Medication administered at discharge. kr2 Disposition: 09/24/17 19:56 Discharged to Home. Impression: Allergy status to other antibiotic agents status. - Condition is Stable. - Discharge Instructions: Allergies, [id number]. - Medication Reconciliation Form, Thank You Letter, Antibiotic Education, Prescription Opioid Use form. - Follow up: Emergency Department; When: As needed; Reason: Worsening of condition. Follow up: Private Physician; When: 2 - 3 days; Reason: Recheck today's complaints, Continuance of care, Re-evaluation by your physician. Addendum: 09/29/2017 19:50 Co-signature as Attending Physician, Ya Perez MD. m a2 Signatures: Dispatcher [employer] EDMarlen Minaya, YESY SUH-Tanya Patel RN RN Rosemarie Staples RN RN kr2 Ya Perez MD MD ma2 Corrections: (The following items were deleted from the chart) 09/24 20:25 19:56 09/24/2017 19:56 Discharged to Home. Impression: Allergy status to other kr2 antibiotic agents status. Condition is Stable. Forms are Medication Reconciliation Form, Thank You Letter, Antibiotic Education, Prescription Opioid Use. Follow up: Emergency Department; When: As needed; Reason: Worsening of condition. Follow up: Private Physician; When: 2 - 3 days; Reason: Recheck today's complaints, Continuance of care, Re-evaluation by your physician. kb
[2017-09-24] MEDS ORDERED: DIPHENHYDRAMINE 25 MG TAB/CAP ONE (20:08)
== END 2017-09-24 20:25 | disposition home or self-care (01) ==
LOC: ER 16:24
DX: R21 Rash and other nonspecific skin eruption (principal); Z88.1 Allergy status to other antibiotic agents
CPT/HCPCS: 36415; 74177; 80048; 81003; 81015; 81025; 85025; 87077; 87086; 87088; 87186; 96361; 96374; 96375; 99284; J2405; J2930; J7030; Q9967